=== PATIENT | female | born 1950 | race Caucasian/White ===

== ENCOUNTER 2020-11-26 13:37 | Day surgery (SDC) | payer MEDICARE ==
[~2020-11-26 13:37] MED LIST: FAMO40TA58 PO; FLUT1BLS3 IH; GABA600T13 PO; LOSA50TA3 PO; NICO-630 TOP; TRAM50TA2 PO; TRAZ-251 PO
[2020-11-26 15:12] VITALS: BP 140/62
--- NOTE | 2020-11-26 16:55 | NUR ---
Discharged to transportation back to [facility]. No further bleeding noted. Very light compression to the site with quartered 4x4s secured with coban wrapped loosely. No discoloration the extremity, able to move fingers without difficulty, arm warm to touch and pt denies pain. Patient given a sandwich and a bath blanket for ride home. Denies pain or discomfort. Report given to receiving nurse with all questions answered.
== END 2020-11-26 16:51 | disposition home or self-care (01) ==
LOC: SSTAY O 13:37
PROVIDERS: ATTEND Emergency Medicine
DX: Z45.2 Encounter for adjustment and management of vascular access device (principal)
CPT/HCPCS: 36573; 76937